=== PATIENT | female | born 1985 | race Caucasian/White ===

== ENCOUNTER 2018-07-25 20:09 | Emergency (ER) | payer MEDICAID ==
[~2018-07-25] VITALS: Ht 160 cm; Wt 59.1 kg
[2018-07-25 21:28] VITALS: BP 122/68
== END 2018-07-25 21:29 | disposition home or self-care (01) ==
LOC: EMS 20:09
DX: B35.0 Tinea barbae and tinea capitis (principal)

== ENCOUNTER 2025-04-29 13:51 | Emergency (ER) | payer MEDICAID, OTHER ==
[~2025-04-29] VITALS: Ht 162.6 cm; Wt 49.5 kg
[2025-04-29 13:55] VITALS: BP 110/73; PULSE 63; RESP 18; TEMP 98.6; O2SAT 99
[2025-04-29] MEDS ORDERED: ACET-2247 PO (16:19)
[2025-04-29] MEDS ORDERED: IBUP-1492 PO (16:19)
== END 2025-04-29 16:28 | disposition home or self-care (01) ==
LOC: EMS 13:52
DX: M54.50 Low back pain, unspecified (principal); Z98.890 Other specified postprocedural states; W01.0XXA Fall on same level from slipping, tripping and stumbling without subsequent striking against object, initial encounter; Y93.89 Activity, other specified; Y92.89 Other specified places as the place of occurrence of the external cause; Y99.8 Other external cause status
CPT/HCPCS: 72131; 99284

== ENCOUNTER 2025-05-02 17:16 | Emergency (ER) | payer OTHER ==
[~2025-05-02 17:16] MED LIST: ACET-2247 PO; IBUP-1492 PO
== END 2025-05-02 18:09 | disposition left against medical advice (07) ==
LOC: EMS 17:16
DX: M25.559 Pain in unspecified hip (principal); Z53.21 Procedure and treatment not carried out due to patient leaving prior to being seen by health care provider